=== PATIENT | male | born 1955 | race Caucasian/White ===

== ENCOUNTER 2019-10-09 23:06 | Emergency (ER) | payer MEDICARE, BC ==
[~2019-10-09] VITALS: Ht 180.3 cm; Wt 100.0 kg
[2019-10-09 23:12] VITALS: BP 173/95
== END 2019-10-10 01:51 | disposition home or self-care (01) ==
LOC: ER 23:07
DX: T40.7X1A Poisoning by cannabis (derivatives), accidental (unintentional), initial encounter (principal); R41.82 Altered mental status, unspecified; G89.29 Other chronic pain; F12.90 Cannabis use, unspecified, uncomplicated; Y92.89 Other specified places as the place of occurrence of the external cause
CPT/HCPCS: 93005; 99283

== ENCOUNTER 2019-10-16 19:28 | Emergency (ER) | payer MEDICARE, BC ==
[~2019-10-16] VITALS: Ht 175.3 cm; Wt 106.9 kg
--- NOTE | 2019-10-16 20:29 | NUR ---
Pt awakened and is oriented , but groggy. States he is beginning to feel better. bp 98/52. No pain.
[2019-10-16] MEDS ORDERED: normal saline 1000ML IV soln IVB ONE (20:45)
[2019-10-16 21:04] LABS: BASOPHILS # (AUTO) 0.1 X10'3 (0-0.2); BASOPHILS % (AUTO) 0.6 % (0-1); EOSINOPHILS # (AUTO) 0.6 X10'3 (0-0.9); EOSINOPHILS % (AUTO) 7.2 % (0-6); HEMATOCRIT 31.1 % (42.0-52.0); HEMOGLOBIN 10.8 g/dl (14.0-17.9); LYMPHOCYTES # (AUTO) 1.8 X10'3 (1.1-4.8); LYMPHOCYTES % (AUTO) 20.5 % (21-51); MEAN CORPUSCULAR HEMOGLOBIN 31.7 PG (27.0-31.0); MEAN CORPUSCULAR HGB CONC 34.8 g/dL (33.0-36.5); MEAN PLATELET VOLUME 7.4 FL (7.4-10.4); MONOCYTES % (AUTO) 11.6 % (2-12); NEUTROPHILS # (AUTO) 5.1 X10'3 (1.8-7.7); NEUTROPHILS % (AUTO) 60.1 % (42-75); PLATELET COUNT 247 X10'3 (140-440); RED BLOOD COUNT 3.41 X10'6 (4.70-6.10); RED CELL DISTRIBUTION WIDTH 13.3 % (11.5-14.5); WHITE BLOOD COUNT 8.5 X10'3 (4.5-11.0)
[2019-10-16 21:21] LABS: ALANINE AMINOTRANSFERASE 25 U/L (12-78); ALBUMIN 3.3 G/DL (3.4-5.0); ALBUMIN/GLOBULIN RATIO 1.1 (1.1-1.5); ALKALINE PHOSPHATASE 99 IU/L (46-116); ANION GAP 6 (8-16); ASPARTATE AMINO TRANSFERASE 19 U/L (10-37); BILIRUBIN,TOTAL 0.3 MG/DL (0.1-1.0); BLOOD UREA NITROGEN 22 MG/DL (7-18); BUN/CREATININE RATIO 14.4 (5.4-32.0); CALCIUM 8.5 MG/DL (8.5-10.1); CHLORIDE 103 MMOL/L (99-107); CREATININE 1.53 MG/DL (0.60-1.10); GLUCOSE 129 MG/DL (70-104); POTASSIUM 4.1 MMOL/L (3.5-5.1); SODIUM 137 MMOL/L (135-145); TOTAL CARBON DIOXIDE 28.2 MMOL/L (24-32); TOTAL PROTEIN 6.3 G/DL (6.4-8.2); eGFR 46 ML/MIN
[2019-10-16 21:27] LABS: ETHANOL < 0.010 GM/DL (0.0-0.010); MAGNESIUM 1.4 MG/DL (1.5-2.4)
[2019-10-16 21:42] LABS: URINE AMPHETAMINE SCREEN NEGATIVE (Neg); URINE BARBITUATE SCREEN NEGATIVE (Neg); URINE BENZODIAZEPINES SCREEN NEGATIVE (Neg); URINE CANNABINOID SCREEN POSITIVE (Neg); URINE COCAINE SCREEN NEGATIVE (Neg); URINE METHADONE SCREEN NEGATIVE (Neg); URINE OPIATE SCREEN NEGATIVE (Neg); URINE PHENCYCLIDINE SCREEN NEGATIVE (Neg)
[2019-10-16 22:51] VITALS: BP 102/60
== END 2019-10-16 22:53 | disposition home or self-care (01) ==
LOC: ER 19:29
DX: T40.7X1A Poisoning by cannabis (derivatives), accidental (unintentional), initial encounter (principal); G89.29 Other chronic pain; F12.90 Cannabis use, unspecified, uncomplicated; R53.1 Weakness; Y92.89 Other specified places as the place of occurrence of the external cause
CPT/HCPCS: 36415; 71045; 80053; 80305; 80320; 83735; 83880; 84484; 85025; 93005; 96360; 99285; J7030

== ENCOUNTER 2022-06-25 21:50 | Emergency (ER) | payer MEDICARE, BC ==
[~2022-06-25] VITALS: Ht 180.3 cm; Wt 95.5 kg
[~2022-06-25 21:50] MED LIST: AMLO10TA13 PO; ATOR40TA72 PO; BUPR100T15 PO; ESOM20CA38 PO; GABA600T13 PO; Hydralazine Hcl IV; MELA3TAB41 PO; QUET100T34 PO
[2022-06-25] MEDS ORDERED: acetaminophen 325mg tablet PO ONE (23:40)
[2022-06-26 01:10] VITALS: BP 111/61
== END 2022-06-26 01:31 | disposition home or self-care (01) ==
LOC: ER 21:51
DX: R07.0 Pain in throat (principal); M54.9 Dorsalgia, unspecified; I10 Essential (primary) hypertension; E11.9 Type 2 diabetes mellitus without complications; G89.29 Other chronic pain; F12.10 Cannabis abuse, uncomplicated; Z79.899 Other long term (current) drug therapy; Z79.1 Long term (current) use of non-steroidal anti-inflammatories (NSAID); Z79.2 Long term (current) use of antibiotics
CPT/HCPCS: 99282

== ENCOUNTER 2023-04-13 12:23 | Emergency (ER) | payer MEDICARE, BC ==
[~2023-04-13] VITALS: Ht 180.3 cm; Wt 95.5 kg
[2023-04-13 12:33] VITALS: BP 136/86; PULSE 75; RESP 18; TEMP 97.8; O2SAT 98
[2023-04-13] MEDS ORDERED: CEPH-585 PO (14:12)
== END 2023-04-13 15:10 | disposition home or self-care (01) ==
LOC: ER 12:23
DX: S90.811A Abrasion, right foot, initial encounter (principal); Z79.899 Other long term (current) drug therapy; W22.8XXA Striking against or struck by other objects, initial encounter; Y93.89 Activity, other specified; Y92.89 Other specified places as the place of occurrence of the external cause; Y99.8 Other external cause status
CPT/HCPCS: 99283; A6258

== ENCOUNTER 2023-07-13 10:28 | Outpatient (CLI) | payer MEDICARE, BC ==
[~2023-07-13 10:28] MED LIST changes: +CEPH-585 PO
== END 2023-07-13 23:59 | disposition home or self-care (01) ==
LOC: 64 CT 10:28
PROVIDERS: ATTEND Podiatrist Foot & Ankle Surgery
DX: S93.102A Unspecified subluxation of left toe(s), initial encounter (principal); M19.072 Primary osteoarthritis, left ankle and foot; M20.12 Hallux valgus (acquired), left foot; M86.9 Osteomyelitis, unspecified; M79.672 Pain in left foot; X58.XXXA Exposure to other specified factors, initial encounter; Y93.89 Activity, other specified; Y92.89 Other specified places as the place of occurrence of the external cause; Y99.8 Other external cause status
CPT/HCPCS: 73700

== ENCOUNTER 2025-01-16 11:05 | Emergency (ER) | payer MEDICARE, BC ==
[~2025-01-16] VITALS: Ht 180.3 cm; Wt 100.0 kg
[~2025-01-16 11:05] MED LIST changes: -CEPH-585 PO; -ESOM20CA38 PO; +ESOM20CA50 PO; +GABA-1405 PO; -GABA600T13 PO
[2025-01-16 11:10] VITALS: BP 149/96; PULSE 70; RESP 16; TEMP 97; O2SAT 98
--- NOTE | 2025-01-16 11:48 | RADIOLOGY REPORT ---
CLINICAL INDICATION: FOOT PAIN TECHNIQUE: Right DI FOOT, COMPLETE (3VW MIN) Comparison: CT CT LOWER EXTREMITY on DOS: 07/13/23, FOOT,LIMITED (AP/LAT) on DOS: 05/23/22 FINDINGS/IMPRESSION: : There is no evidence of acute fracture or dislocation. Chronic degenerative/posttraumatic changes of the right foot with plate and screw fixation of the proximal 1st 2nd and 3rd metatarsals. Severe medial and inferior soft-tissue swelling centered around the midfoot.
[2025-01-16] MEDS ORDERED: CIPR-458 PO (12:36)
[2025-01-16] MEDS ORDERED: TRAM50TA2 PO (12:36)
[2025-01-16] MEDS ORDERED: METR-159 PO (12:36)
--- NOTE | 2025-01-16 12:37 | Physician Documentation ---
History of Present Illness ~ Chief Complaint: Foot pain Stated Complaint: R FOOT WOUND Time Seen by MD: 11:37 Primary Medical Doctor: DIEGO HPI 69-year-old male insulin-dependent diabetic who presents to the emergency department for evaluation of acute on chronic right foot diabetic foot ulcer. Reports his chronic ulcer to the medial portion of his right foot has had some swelling. Also has had some discharge. No obvious fluctuance or lymphangitis at this time. Tetanus witin 5 years: No Medication Reconciliation Allergies: Coded Allergies: No Known Allergies (Unverified , 01/16/25) Scheduled Amlodipine Besylate (Amlodipine Besylate), 1 TAB PO DAILY, (Reported) Atorvastatin Calcium (Atorvastatin Calcium), 1 TAB PO DAILY, (Reported) Bupropion HCl (Bupropion HCl Sr), 1 TAB PO BID, (Reported) Ciprofloxacin HCl (Ciprofloxacin HCl), 1 TAB PO BID Esomeprazole Magnesium (Esomeprazole Magnesium), 1 CAP PO DAILY, (Reported) Gabapentin (Gabapentin), 1 TAB PO TID, (Reported) Melatonin (Melatonin), 3 TAB PO HS, (Reported) Metronidazole* (Flagyl*), 1 TAB PO Q12H Quetiapine Fumarate (Quetiapine Fumarate), 1 TAB PO BID, (Reported) Scheduled PRN Tramadol HCl (Tramadol HCl), 1 TAB PO Q6H PRN PRN for pain [Hydralazine Hcl*], 10 MG IV Q6H PRN for high blood pressure, (Reported) Past Medical History Past Medical History: Hypertension, Diabetes, Chronic Pain, *PSYCH* Past Surgical History: orthopedic surgeries Alcohol Use: None Drug Use: marijuana Lives with: Spouse Lives In: Home Review of Systems All Other Systems at this time: Reviewed and Negative Constitutional: Denies: chills, fever, malaise Musculoskeletal: Reports: pain, swelling Integumentary: Reports: lesions Physical Exam Vital Signs: RN Vital Signs have been reviewed: Yes, Temperature: 97.0, Source: Temporal, Heart Rate: 70, Respiratory Rate: 16, BP: 149/96, Pulse Oximetry: 98, Weight: 100.000 Oxygen Flow Rate: 0 General Appearance: alert, WD/WN, mild distress Head: normal inspection EENT: PERRL/EOMI Neck: non-tender Respiratory: no respiratory distress Chest: no accessory muscle use Feet: soft tissue tenderness (1cm ulceration without fluctuance or erythema to right medial mid foot) Distal Function: no motor deficit Skin: swelling; No: red Neurologic: oriented x4 Psychiatric: normal mood/affect Progress Results/Orders Results/Orders Vital Signs 01/16/25 11:10 Temp 97.0 Pulse 70 Resp 16 B/P (MAP) 149/96 Pulse Ox 98 O2 Flow Rate 0 Medical Decision Making Additional information obtaine: N/A Findings Examination & history consistent with acute on chronic right mid medial foot diabetic foot ulcer requiring outpatient antibiotics without I&D. X-ray imaging reassuring for no obvious osteo or bony involvement. Soft tissue swelling is no ruchi. Patient to follow up with the primary care physician for referral to Podiatry. Antibiotic and pain management provided for patient. General Diff Dx:Considerations: Include: Abrasion, Contusion, Fracture, Hematoma Knee Diff Dx:Considerations: Include: Other (Noncontributory noncontributory) Ankle Diff Dx:Considerations: Include: Other Foot Diff Dx:Considerations: Include: Arthritis, DJD, Fracture-metatarsal, Gout, Ulcer, Other (Foreign body or mass) Toe Diff Dx:Considerations: Include: Other (Contributory) Departure Disposition: HOME / SELF CARE / HOMELESS Impression: Primary Impression: Diabetic foot ulcer Qualified Codes: E10.621 - Type 1 diabetes mellitus with foot ulcer; L97.419 - Non-pressure chronic ulcer of right heel and midfoot with unspecified severity Additional Instructions: Please begin medications as directed and make follow up appointment with your primary care physician for referral to Podiatry for continued evaluation of your slow to heal diabetic foot ulcer. Thank you for visiting emergency department [facility]. Referrals: NO PRIMARY CARE PROVIDER (PCP) Prescriptions Tramadol HCl (Tramadol HCl) 50 Mg Tablet 1 TAB PO Q6H PRN PRN for pain for 7 Days, #28 TAB Prov: AUREA REYES 01/16/25 Metronidazole* (Flagyl*) 500 Mg Tablet 1 TAB PO Q12H for 10 Days, #20 TAB Prov: AUREA REYES 01/16/25 Ciprofloxacin HCl (Ciprofloxacin HCl) 500 Mg Tab 1 TAB PO BID, #20 TAB Prov: AUREA REYES 01/16/25 Education Educated: Patient Educated regarding: diagnosis, treatment, prognosis, need for follow up Signature Scribe Signature: . Attestation: . AUREA REYES Jan 16, 2025 12:37
== END 2025-01-16 12:46 | disposition home or self-care (01) ==
LOC: ER 11:07
DX: E10.621 Type 1 diabetes mellitus with foot ulcer (principal); I10 Essential (primary) hypertension; G89.29 Other chronic pain; Z79.4 Long term (current) use of insulin; Z88.1 Allergy status to other antibiotic agents
CPT/HCPCS: 73630; 99283